=== PATIENT | male | born 1955 | race Caucasian/White ===

== ENCOUNTER 2020-06-13 10:24 | Outpatient (REF) | payer BC, SELFPAY ==
[2020-06-13 14:23] LABS: MANUAL DIFF FLAG NO
[2020-06-13 14:30] LABS: Basophils Percent Auto 0.2 % (0-2); Eosinophils Absolute Auto 0.3 X10*3/uL (0.0-0.4); Eosinophils Percent Auto 3.1 % (0-4); Hemoglobin 14.8 g/dl (14.0-18.0); Imm Gran Abs Auto 0.04 X10*3/uL (0.00-0.03); Imm Gran Pct Auto 0.5 % (0.0-0.4); Lymphocytes Absolute Auto 2.7 X10*3/uL (1.2-4.9); Lymphocytes Percent Auto 30.9 % (20-40); Mean Corpuscular HGB Conc 35.2 g/dl (31.0-36.0); Mean Corpuscular Hemoglobin 32.2 pg (27.0-33.0); Mean Corpuscular Volume 91.3 fL (80-98); Mean Platelet Volume 9.9 fL (9.4-12.4); Monocytes Absolute Auto 0.7 X10*3/uL (0.1-1.2); Monocytes Percent Auto 8.3 % (2-11); Platelet Count 266 X10*3/uL (160-400); Red Cell Distribution Width 12.1 % (11.0-16.0); White Blood Count 8.8 X10*3/uL (4.8-10.8)
[2020-06-13 15:10] LABS: Alanine Aminotransferase 34 U/L (0-40); Albumin Level 4.4 g/dL (3.5-5.0); Alkaline Phosphatase 58 U/L (39-117); Anion Gap 14 (12-20); Aspartate Amino Transferase 28 U/L (5-37); Blood Urea Nitrogen 10 mg/dL (9-16); Calcium 8.6 mg/dL (8.4-10.2); Carbon Dioxide 27 mmol/L (22-29); Chloride 102 mmol/L (96-108); Estimated Glomerular Filt Rate > 60; Glucose Random 88 mg/dL (60-115); Potassium 4.1 mmol/l (3.3-5.1); Sodium 139 mmol/L (135-145)
== END 2020-06-13 10:25 | disposition home or self-care (01) ==
LOC: HO.10HDL 10:24
PROVIDERS: Visit Provider Internal Medicine
DX: I10 Essential (primary) hypertension (principal); I25.10 Atherosclerotic heart disease of native coronary artery without angina pectoris; E03.9 Hypothyroidism, unspecified
CPT/HCPCS: 36415; 80053; 85025

== ENCOUNTER 2020-10-03 09:49 | Outpatient (REF) | payer BC, SELFPAY ==
[2020-10-03 13:58] LABS: MANUAL DIFF FLAG NO
[2020-10-03 14:04] LABS: Basophils Percent Auto 0.3 % (0-2); Eosinophils Absolute Auto 0.3 X10*3/uL (0.0-0.4); Eosinophils Percent Auto 3.3 % (0-4); Hematocrit 44.4 % (42-52); Hemoglobin 15.2 g/dl (14.0-18.0); Imm Gran Abs Auto 0.03 X10*3/uL (0.00-0.03); Imm Gran Pct Auto 0.3 % (0.0-0.4); Lymphocytes Absolute Auto 2.9 X10*3/uL (1.2-4.9); Lymphocytes Percent Auto 31.6 % (20-40); Mean Corpuscular HGB Conc 34.2 g/dl (31.0-36.0); Mean Corpuscular Hemoglobin 31.7 pg (27.0-33.0); Mean Corpuscular Volume 92.5 fL (80-98); Mean Platelet Volume 9.9 fL (9.4-12.4); Monocytes Absolute Auto 0.8 X10*3/uL (0.1-1.2); Monocytes Percent Auto 8.4 % (2-11); Neutrophils Absolute Auto 5.1 X10*3/uL (2.0-8.3); Neutrophils Percent Auto 56.1 % (45-73); Platelet Count 261 X10*3/uL (160-400); Red Cell Distribution Width 11.8 % (11.0-16.0); White Blood Count 9.1 X10*3/uL (4.8-10.8)
[2020-10-03 14:35] LABS: Alanine Aminotransferase 35 U/L (0-40); Albumin Level 4.6 g/dL (3.5-5.0); Alkaline Phosphatase 63 U/L (39-117); Anion Gap 13 (12-20); Aspartate Amino Transferase 26 U/L (5-37); Bilirubin Total 1.9 mg/dL (0.0-1.0); Blood Urea Nitrogen 11 mg/dL (9-16); Calcium 9.3 mg/dL (8.4-10.2); Carbon Dioxide 29 mmol/L (22-29); Chloride 102 mmol/L (96-108); Cholesterol 128 mg/dL; Estimated Glomerular Filt Rate > 60; Glucose Fasting 98 mg/dL (60-99); HDL Cholesterol 39 mg/dL; LDL Cholesterol Calculated 66 mg/dl; Potassium 4.2 mmol/L (3.3-5.1); Sodium 140 mmol/L (135-145); Total Protein 7.2 g/dL (6.5-8.0); Triglycerides 116 mg/dL
[2020-10-03 15:01] LABS: Free T4 (Free Thyroxine) 1.18 ng/dL (0.71-1.85); Thyroid Stimulating Hormone 4.14 uIU/mL (0.32-4.0)
== END 2020-10-03 09:50 | disposition home or self-care (01) ==
LOC: HO.10HDL 09:49
PROVIDERS: Absent Provider Internal Medicine Cardiovascular Disease; Visit Provider Internal Medicine
DX: I25.10 Atherosclerotic heart disease of native coronary artery without angina pectoris (principal); E78.00 Pure hypercholesterolemia, unspecified; E03.9 Hypothyroidism, unspecified; Z12.5 Encounter for screening for malignant neoplasm of prostate
CPT/HCPCS: 36415; 80053; 80061; 84153; 84439; 84443; 85025

== ENCOUNTER 2021-01-15 07:43 | Outpatient (REF) | payer BC, SELFPAY ==
[2021-01-15 11:15] LABS: MANUAL DIFF FLAG NO
[2021-01-15 11:27] LABS: Basophils Percent Auto 0.3 % (0-2); Eosinophils Absolute Auto 0.3 X10*3/uL (0.0-0.4); Hematocrit 41.6 % (42-52); Hemoglobin 14.1 g/dl (14.0-18.0); Imm Gran Abs Auto 0.04 X10*3/uL (0.00-0.03); Imm Gran Pct Auto 0.5 % (0.0-0.4); Lymphocytes Absolute Auto 2.5 X10*3/uL (1.2-4.9); Lymphocytes Percent Auto 31.3 % (20-40); Mean Corpuscular HGB Conc 33.9 g/dl (31.0-36.0); Mean Corpuscular Hemoglobin 31.6 pg (27.0-33.0); Mean Corpuscular Volume 93.3 fL (80-98); Mean Platelet Volume 10.2 fL (9.4-12.4); Monocytes Absolute Auto 0.8 X10*3/uL (0.1-1.2); Monocytes Percent Auto 10.1 % (2-11); Neutrophils Absolute Auto 4.3 X10*3/uL (2.0-8.3); Neutrophils Percent Auto 53.8 % (45-73); Platelet Count 271 X10*3/uL (160-400); Red Blood Count 4.46 X10*6/uL (4.60-5.80)
[2021-01-15 11:46] LABS: B Type Natriuretic Peptide 61 pg/mL (<100)
[2021-01-15 12:14] LABS: Free T4 (Free Thyroxine) 1.05 ng/dL (0.71-1.85); Thyroid Stimulating Hormone 6.59 uIU/mL (0.32-4.0)
[2021-01-15 12:18] LABS: Alanine Aminotransferase 26 U/L (0-40); Albumin Level 4.2 g/dL (3.5-5.0); Alkaline Phosphatase 61 U/L (39-117); Anion Gap 13 (12-20); Aspartate Amino Transferase 25 U/L (5-37); Bilirubin Total 1.3 mg/dL (0.0-1.0); Blood Urea Nitrogen 10 mg/dL (9-16); C Reactive Protein 0.07 mg/dL (< or = 0.50); Calcium 9.3 mg/dL (8.4-10.2); Carbon Dioxide 25 mmol/L (22-29); Chloride 105 mmol/L (96-108); Estimated Glomerular Filt Rate > 60; Glucose Random 104 mg/dL (60-115); Potassium 3.9 mmol/L (3.3-5.1); Sodium 139 mmol/L (135-145); Total Protein 6.5 g/dL (6.5-8.0)
== END 2021-01-15 07:44 | disposition home or self-care (01) ==
LOC: HO.HMGCLDS 07:43
PROVIDERS: PCP Internal Medicine; Visit Provider Internal Medicine
DX: R60.9 Edema, unspecified (principal); R21 Rash and other nonspecific skin eruption; I25.10 Atherosclerotic heart disease of native coronary artery without angina pectoris; E03.9 Hypothyroidism, unspecified
CPT/HCPCS: 36415; 80053; 83880; 84439; 84443; 85025; 86140

== ENCOUNTER → 2021-01-20 07:46 | Outpatient (REF) | payer BC, SELFPAY ==
--- NOTE | 2021-01-20 08:00 | CA_ITS ---
Transthoracic Echocardiogram Patient (Last, First, Middle): Bradley Schulte, Gender: Male Date of : 1955 Age: 65 Procedure Date: 01/20/2021 Procedure Type: Transthoracic Echocardiogram Location: OP Height: 175.26 cm Weight: 89.36 kg BSA: 2.05 m2 Heart Rate: bpm BP: 124 / 60 mmHg Education Faculty Member: NERY Referring MD: Eusebio Bruce MD Symptoms: R60.9 EDEMA I25.10 ASCD W/O ANGINA, R07.9 CHEST PAIN Study Quality: Fair ECG Rhythm: Sinus Conclusions: - The left ventricular systolic function is normal. The visually estimated ejection fraction is between 55-60%. - E/E prime ratio is >15, consistent with elevated filling pressures. - There is mildly decreased right ventricular systolic function. - There is mild mitral valve regurgitation. Findings Left Ventricle Normal left ventricular cavity size. There is mildly increased left ventricular wall thickness. The left ventricular systolic function is normal. The visually estimated ejection fraction is between 55-60%. There is no evidence of regional wall motion abnormalities. E/E prime ratio is >15, consistent with elevated filling pressures. Evidence suggests grade I (mild) diastolic dysfunction. Right Ventricle Normal right ventricular cavity size. There is mildly decreased right ventricular systolic function. Atria Both atria are normal in size. Aortic Valve There is a normal trileaflet aortic valve. There is no aortic valve stenosis. There is no aortic valve regurgitation. Mitral Valve The mitral valve appears normal. There is mild mitral valve regurgitation. There is no mitral valve stenosis. Pulmonic Valve The pulmonic valve was not well visualized. Tricuspid Valve Normal tricuspid valve structure. There is no tricuspid valve regurgitation. The pulmonary artery systolic pressure is normal. Great Vessels The aortic annulus, sinuses of valsalva, asc aorta, and aortic arch are normal in size. Venous The inferior vena cava is normal in size and collapses greater than 50% with inspiration. Pericardium/Pleural There is no evidence of pericardial effusion. Prior Study Comparison No prior study available for comparison. Measurements M-Mode Liner Measurements Normals - Women/Men AOV Cusps: 1.90 1.5-2.6 cm/m2 2D Linear Measurements IVSd: 1.15 0.6-0.9/0.6-1.0 cm LVIDd: 4.38 3.9-5.3/4.2-5.9 cm LVIDd Index: 2.14 2.4-3.2/2.2-3.1 cm/m2 LVIDs: 1.75 2.0-3.6 cm LVPWd: 1.23 0.7-1.1 cm Ao Root: 3.00 2.1-3.5 cm LA Diam: 4.40 2.7-3.8/3.0-4.0 cm LAIDs Index: 2.15 1.5-2.3 cm/m2 LV Mass: 233.88 67-162/88-224 g LV Mass Index: 114.09 43-95/49-115 g/m2 LVOT Diam: 2.20 3.0+(-)1.3 cm Mitral Valve MV Pk E: 1.07 MV PK A: 1.01 MV Decel Time: 179.00 E/A: 1.10 E'Lateral: 6.85 E'Medial: 5.22 E/E' Med: 20.50 E/E' Lat: 15.60 PHT: 52.00 MVA PHT: 4.23 Decel Will: 6.00 Aortic Valve AoV Pk Jean-Paul: 0.99 AoV Mn Jean-Paul: 0.75 AoV VTI: 0.24 AoV Pk Grad: 4.00 Aov Mn Grad: 2.00 MARIA G Cont.VTI: 2.76 LVOT LVOT Pk Jean-Paul: 0.76 LVOT Mn Jean-Paul: 0.55 LVOT VTI: 0.17 LVOT Pk Grad: 2.00 LVOT Mn Grad: 1.00 LVOT Diam: 2.20 LVOT Area: 3.80 Diastolic Function MV Pk E: 1.07 MV Pk A: 1.01 E/A: 1.10 E'Medial: 5.22 E/E' Med: 20.50 E' Laterial: 6.85 E/E' Lat: 15.60 Tricuspid Valve RA Press: 3.00 Great Vessels Aorta Ao Root-2D: 3.00 2.0-3.7 cm Ao Asc: 3.50 2.1-3.4 cm Ao Arch: 2.20 Pulmonary Valve PV Pk Jean-Paul: 0.90 Peak PV Grad: 3.00 Updated in Other Vendor System with Status of Final Chava Olson MD electronically signed on 01/20/2021 4:50:18 PM with status of Final
== END ==
LOC: HO.CARD 07:46
PROVIDERS: PCP Internal Medicine; Visit Provider Internal Medicine
DX: I25.10 Atherosclerotic heart disease of native coronary artery without angina pectoris (principal); R60.9 Edema, unspecified; R21 Rash and other nonspecific skin eruption
CPT/HCPCS: 93306

== ENCOUNTER 2021-04-23 10:11 | Outpatient (REF) | payer BC, SELFPAY ==
[2021-04-23 14:33] LABS: Anion Gap 11 (12-20); Blood Urea Nitrogen 10 mg/dL (9-16); Calcium 9.4 mg/dL (8.4-10.2); Carbon Dioxide 27 mmol/L (22-29); Chloride 104 mmol/L (96-108); Estimated Glomerular Filt Rate > 60; Glucose Fasting 90 mg/dL (60-99); Potassium 4.2 mmol/L (3.3-5.1); Sodium 138 mmol/L (135-145)
[2021-04-23 14:49] LABS: Free T4 (Free Thyroxine) 1.13 ng/dL (0.71-1.85)
[2021-04-23 19:06] LABS: Thyroid Stimulating Hormone 2.55 uIU/mL (0.32-4.0)
== END 2021-04-23 10:12 | disposition home or self-care (01) ==
LOC: HO.10HDL 10:11
PROVIDERS: Visit Provider Internal Medicine
DX: E03.9 Hypothyroidism, unspecified (principal); I25.10 Atherosclerotic heart disease of native coronary artery without angina pectoris; I10 Essential (primary) hypertension
CPT/HCPCS: 36415; 80048; 84439; 84443

== ENCOUNTER 2021-08-06 09:49 | Outpatient (REF) | payer BC, SELFPAY ==
--- NOTE | ~2021-08-06 | XR_ITS ---
EXAMINATION: XR HIP, LEFT CLINICAL INFORMATION: Left hip pain, question OA COMPARISON: None TECHNIQUE: Two views of the left hip. FINDINGS: No displaced fracture. The femoral head is well-seated within the acetabulum. There is mild cartilage space loss in the hip. Soft tissues unremarkable. XR/XR hip LT min 2V IMPRESSION: Mild degenerative change in the left hip.
[2021-08-06 13:25] LABS: MANUAL DIFF FLAG NO
[2021-08-06 13:38] LABS: Basophils Percent Auto 0.2 % (0-2); Eosinophils Absolute Auto 0.4 X10*3/uL (0.0-0.4); Eosinophils Percent Auto 4.2 % (0-4); Hematocrit 43.3 % (42.0-52.0); Hemoglobin 14.6 g/dl (14.0-18.0); Imm Gran Abs Auto 0.05 X10*3/uL (0.00-0.03); Imm Gran Pct Auto 0.5 % (0.0-0.4); Lymphocytes Absolute Auto 2.3 X10*3/uL (1.2-4.9); Lymphocytes Percent Auto 25.1 % (20-40); Mean Corpuscular HGB Conc 33.7 g/dl (31.0-36.0); Mean Corpuscular Hemoglobin 31.1 pg (27.0-33.0); Mean Corpuscular Volume 92.3 fL (80.0-98.0); Mean Platelet Volume 10.1 fL (9.4-12.4); Monocytes Absolute Auto 0.8 X10*3/uL (0.1-1.2); Monocytes Percent Auto 8.3 % (2-11); Neutrophils Absolute Auto 5.6 x10*3/uL (2.0-8.3); Neutrophils Percent Auto 61.7 % (45-73); Platelet Count 244 X10*3/uL (160-400); Red Blood Count 4.69 X10*6/uL (4.60-5.80); Red Cell Distribution Width 12.3 % (11.0-16.0); White Blood Count 9.1 X10*3/uL (4.8-10.8)
[2021-08-06 13:48] LABS: Alanine Aminotransferase 35 U/L (0-40); Albumin Level 4.3 g/dL (3.5-5.0); Alkaline Phosphatase 62 U/L (39-117); Anion Gap 10 (12-20); Aspartate Amino Transferase 24 U/L (5-37); Bilirubin Total 1.5 mg/dL (0.0-1.0); Blood Urea Nitrogen 9 mg/dL (9-16); Calcium 9.4 mg/dL (8.4-10.2); Carbon Dioxide 29 mmol/L (22-29); Chloride 103 mmol/L (96-108); Cholesterol 130 mg/dL; Estimated Glomerular Filt Rate > 60; Glucose Fasting 102 mg/dL (60-99); HDL Cholesterol 50 mg/dL; LDL Cholesterol Calculated 67 mg/dl; Potassium 4.2 mmol/L (3.3-5.1); Sodium 138 mmol/L (135-145); Total Protein 6.8 g/dL (6.5-8.0); Triglycerides 66 mg/dL
[2021-08-06 14:13] LABS: Free T4 (Free Thyroxine) 1.11 ng/dL (0.71-1.85); Prostate Specific Antigen 0.28 ng/mL (<0.05-4.0); Thyroid Stimulating Hormone 4.81 uIU/mL (0.32-4.0)
== END 2021-08-06 09:50 | disposition home or self-care (01) ==
LOC: HO.10HDL 09:49
PROVIDERS: Visit Provider Internal Medicine
DX: Z12.5 Encounter for screening for malignant neoplasm of prostate (principal); M25.552 Pain in left hip; E03.9 Hypothyroidism, unspecified; N40.0 Benign prostatic hyperplasia without lower urinary tract symptoms; I10 Essential (primary) hypertension; I25.10 Atherosclerotic heart disease of native coronary artery without angina pectoris; E78.5 Hyperlipidemia, unspecified
CPT/HCPCS: 36415; 73502; 80053; 80061; 84153; 84439; 84443; 85025

== ENCOUNTER 2021-10-06 14:08 | Outpatient (REF) | payer BC, SELFPAY ==
--- NOTE | ~2021-10-06 | XR_ITS ---
EXAMINATION: XR CHEST CLINICAL INFORMATION: Right chest pain COMPARISON: Chest radiograph from me 11/2016 TECHNIQUE: 2 views of the chest were obtained. FINDINGS: Biapical pleural parenchymal scarring. Mild appearing coarsened interstitial lung markings. No pneumothorax. Trachea is midline. Sternotomy wires and surgical clips. Prominent epicardial fat pad. Cardiomediastinal silhouette is stable. No large pleural effusion. Degenerative changes of the thoracolumbar spine. Soft tissues are unremarkable. XR/XR chest 2V IMPRESSION: No acute cardiopulmonary process.
[2021-10-06 16:06] LABS: Free T4 (Free Thyroxine) 0.99 ng/dL (0.71-1.85)
== END 2021-10-06 14:09 | disposition home or self-care (01) ==
LOC: HO.XRAY 14:08
PROVIDERS: PCP Internal Medicine; Visit Provider Internal Medicine
DX: R07.9 Chest pain, unspecified (principal); E03.9 Hypothyroidism, unspecified
CPT/HCPCS: 36415; 71046; 84439; 84443

== ENCOUNTER 2022-07-07 10:30 | Outpatient (REF) | payer BC, SELFPAY ==
[2022-07-07 11:32] LABS: Influenza A PCR NEGATIVE (Negative); Influenza B PCR NEGATIVE (Negative); Resp Syncy Virus RNA Qual PCR NEGATIVE (Negative); SARS COV2 PCR INHOUSE NEGATIVE (Negative)
== END 2022-07-07 10:31 | disposition home or self-care (01) ==
LOC: HO.LNP 10:30
PROVIDERS: Visit Provider Internal Medicine
DX: Z20.822 Contact with and (suspected) exposure to COVID-19 (principal); R05.9 Cough, unspecified
CPT/HCPCS: 0241U

== ENCOUNTER 2022-09-15 10:09 | Outpatient (REF) | payer BC, SELFPAY ==
--- NOTE | ~2022-09-15 | XR_ITS ---
EXAMINATION: XR CHEST CLINICAL INFORMATION: Cough COMPARISON: X-ray 10/06/2021 TECHNIQUE: 2 views of the chest were obtained. FINDINGS: Stable cardiomediastinal silhouette. Sternotomy wires. Prominent epicardial fat pad. Stable mild coarsened interstitial lung markings. No focal consolidation. No effusion or pulmonary edema. No pneumothorax. Thoracic spine degeneration. XR/XR chest 2V IMPRESSION: No acute cardiopulmonary process.
== END 2022-09-15 10:10 | disposition home or self-care (01) ==
LOC: HO.XRAY 10:09
PROVIDERS: PCP Internal Medicine; Visit Provider Internal Medicine
DX: R05.9 Cough, unspecified (principal)
CPT/HCPCS: 71046

== ENCOUNTER 2022-12-06 11:15 | Outpatient (REF) | payer BC, SELFPAY ==
--- NOTE | ~2022-12-06 | XR_ITS ---
EXAMINATION: XR CHEST CLINICAL INFORMATION: SOB, Covid plus. COMPARISON: Chest 09/15/2022 TECHNIQUE: 2 views of the chest were obtained. FINDINGS: No significant abnormality is noted involving the heart, lungs, mediastinum, bony thorax or soft tissues. There are median sternotomy sutures from previous CABG. XR/XR chest 2V IMPRESSION: Unremarkable chest examination.
== END 2022-12-06 11:16 | disposition home or self-care (01) ==
LOC: HO.XRAY 11:15
PROVIDERS: PCP Internal Medicine; Visit Provider Internal Medicine
DX: R06.02 Shortness of breath (principal); U07.1 COVID-19
CPT/HCPCS: 71046

== ENCOUNTER 2024-12-21 09:19 | Outpatient (REF) | payer BC, SELFPAY ==
[2024-12-21 10:07] LABS: MANUAL DIFF FLAG NO
[2024-12-21 10:27] LABS: Basophils Percent Auto 0.4 % (0-2); Eosinophils Absolute Auto 0.3 X10*3/uL (0.0-0.4); Eosinophils Percent Auto 4.1 % (0-4); Hematocrit 42.1 % (42.0-52.0); Imm Gran Abs Auto 0.05 X10*3/uL (0.00-0.03); Imm Gran Pct Auto 0.6 % (0.0-0.4); Lymphocytes Absolute Auto 2.4 X10*3/uL (1.2-4.9); Lymphocytes Percent Auto 30.6 % (20-40); Mean Corpuscular HGB Conc 35.6 g/dl (31.0-36.0); Mean Corpuscular Hemoglobin 31.6 pg (27.0-33.0); Mean Corpuscular Volume 88.8 fL (80.0-98.0); Mean Platelet Volume 9.7 fL (9.4-12.4); Monocytes Absolute Auto 0.7 X10*3/uL (0.1-1.2); Monocytes Percent Auto 8.2 % (2-11); Neutrophils Absolute Auto 4.4 x10*3/uL (2.0-8.3); Neutrophils Percent Auto 56.1 % (45-73); Platelet Count 200 X10*3/uL (160-400); Red Blood Count 4.74 X10*6/uL (4.60-5.80); Red Cell Distribution Width 11.8 % (11.0-16.0); White Blood Count 7.9 X10*3/uL (4.8-10.8)
[2024-12-21 10:47] LABS: Estimated Average Glucose 103 mg/dL; Hemoglobin A1C 131.9476 umol/L; Hemoglobin A1c % 5.2 % (<6.0); Total Hemoglobin (HGBA1C) 3961.4623 umol/L
[2024-12-21 11:01] LABS: Anion Gap 12 (12-20); Blood Urea Nitrogen 13 mg/dL (9-16); Carbon Dioxide 25 mmol/L (22-29); Chloride 105 mmol/L (96-108); Cholesterol 127 mg/dL (<200); Estimated Glomerular Filt Rate > 60; Glucose Random 115 mg/dL (60-115); HDL Cholesterol 47 mg/dL (>40); LDL Cholesterol Calculated 67 mg/dL (<100); Potassium 3.8 mmol/L (3.3-5.1); Sodium 138 mmol/L (135-145); Triglycerides 68 mg/dL (<150)
[2024-12-21 11:15] LABS: TSH reflex Free T4 5.96 uIU/mL (0.32-4.0)
[2024-12-21 11:54] LABS: Free T4 (Free Thyroxine) 1.02 ng/dL (0.71-1.85)
== END 2024-12-21 09:20 | disposition home or self-care (01) ==
LOC: HO.10HDL 09:19
PROVIDERS: Referring Provider Internal Medicine Cardiovascular Disease; Visit Provider Physician Assistant
DX: E03.9 Hypothyroidism, unspecified (principal); I10 Essential (primary) hypertension; N40.0 Benign prostatic hyperplasia without lower urinary tract symptoms; Z13.1 Encounter for screening for diabetes mellitus; Z13.220 Encounter for screening for lipoid disorders
CPT/HCPCS: 36415; 80048; 80061; 83036; 84439; 84443; 85025

== ENCOUNTER 2025-01-01 07:55 | Outpatient (AMB) | payer BC, SELFPAY ==
--- NOTE | 2025-01-01 08:03 | MHC.PC.OV ---
Vital Signs 01/01/25 08:06 Height 5 ft 9 in Weight 95.254 kg BMI 31.0 BP 140/80 H Respiration 16 Pulse 74 Pulse Source Pulse Oximeter Temp 97.8 F Temp Source Temporal Artery Scan Pulse Oximetry (%) 95 Oxygen Delivery Method Room Air Intake Visit Reasons: Routine It Desktop Support Technician Required: No Accompanied by: Self / Same As Patient Allergies No Known Allergies Allergy (Verified 01/01/25 08:05) HPI HPI Comments History of Present Illness Details 69-year-old male with history of hypothyroidism, hypertension, hyperlipidemia, BPH, coronary artery disease presents to the office today for management of chronic conditions and to establish care. He has no specific complaints today. PHQ-9 score is 4 but states this is mostly because of insomnia which he states has been going on since child spencer. He has no difficulty following asleep but will wake up around 01:00 for about 30 minutes before falling back asleep. He reports being well rested overall. He tells me he will be retiring in the coming months. Hypertension-initial blood pressure 140/80, repeat 130/78. Reports compliance with lisinopril 20 mg, hydrochlorothiazide 12.5 mg, amlodipine 10 mg daily. He does check his blood pressures at home with systolic blood pressure typically in the 120s and diastolic typically in the 60s. CAD/HLD- s/b CABG- s/p CABGx4 SHELL to LAD, radial to OM, chronic occulations of the vein to ramus and vein to R coronary, ALESHIA RCA (last 10 years ago per patient. NM December 2023- exercise nuclear stress test showing mild reversible perfusion defect in the apex and anterior wall, moderate intensity fixed perfusion defect in the apical to basal inferior wall, mild perfusion defect in the inferolateral wall which seemed artifactual. Following with [facility] cardiology q6m. Last echo without obvious wall motion abnormality. Reserved EF. On asa, atorvastatin 80mg, zetia 10mg. Recently taken off metoprolol d/t bredycardia. No recent anginal cp Carotrid stenosis- R internal carotid occlusion, severe stenosis L internal carotid (70-99%) thought to possibly be elevated due to contralateral occlusion. BPH- no LUTS. Overdue for PSA. On flomax 0.4mg Last colonscopy- 05/2018. 10 year follow up. Vishal General: No fevers, malaise, unintentional weight loss HEENT: No blurred vision, diplopia. No sore throat, nasal congestion, rhinorrhea, sinus pain, ear pain Cardiovascular: No chest pain, palpitations, or leg edema Respiratory: No shortness of breath, wheezing, cough Neuro: No headaches, weakness, paresthesias Skin: No rashes or lesions Constitutional - Awake and Alert, No apparent distress Eyes - PERRLA, EOMI Cardiovascular - S1S2, RRR, No edema. R carotid bruit noted Respiratory - Normal lung expansion, Normal respiratory effort, No respiratory distress, CTA bilaterally Extremities - no calf tenderness bilaterally, no swelling Skin - Warm/Dry Neurological - Alert & oriented x3 Psychological - Appropriate affect [facility] Medical History (Updated 01/01/25 @ 08:48 by NOEMY Gaines) Carotid stenosis CAD (coronary artery disease) BPH (benign prostatic hyperplasia) HTN (hypertension) Hypothyroidism Questionnaire PHQ-9 Over the last 2 weeks, how often have you been bothered by any of the following problems? 2. Feeling down, depressed, or hopeless: not at all 3. Trouble falling or staying asleep, or sleeping too much: not at all 4. Feeling tired or having little energy: nearly every day 5. Poor appetite or overeating: not at all 6. Feeling bad about yourself - or that you are a failure or have let yourself or your family down: several days 7. Trouble concentrating on things, such as reading the newspaper or watching television: not at all 8. Moving or speaking so slowly that other people could have noticed. Or the opposite - being so fidgety or restless that you have been moving around a lot more than usual: not at all 9. Thoughts that you would be better off or of hurting yourself in some way: not at all Source: Developed by Drs. Ezequiel Irene, Juliet Ruano, Suresh Valentino and colleagues, with an educational marco from [employer]. Thrive Questionnaire I am a: Patient What is your living situation today?: I have a steady place to live Within the past 12 months, did the food you bought not last and you didn't have the money to get more?: Never true Within the past 12 months, did you worry whether your food would run out before you got money to buy more?: Never true Do you have trouble paying for medicines?: No Do you have trouble getting transportation to medical appointments?: No Do you have trouble paying your heating and electricity bill?: No Do you have trouble taking care of your child, family member or friend?: No Do you have trouble with day-to-day activities such as bathing, preparing meals, shopping, managing finances, etc.?: No Are you currently unemployed and looking for a job?: No Are you interested in more education?: No Please select the resources that you would like help with: None THRIVE Score: 0 KENRICK-7 AMB Questionnaire KENRICK-7 Feeling nervous, anxious, or on edge: 0 = Not at all Not being able to stop or control worryin = Not at all Worrying too much about different things: 1 = Several days Trouble relaxin = Not at all Being so restless that it is hard to sit still: 0 = Not at all Becoming easily annoyed or irritable: 0 = Not at all Feeling afraid as if something awful might happen: 0 = Not at all Total KENRICK-7 score (0-4 normal; 5-9 mild; 10-14 moderate; 15-21 severe): 1 Source: Developed by Drs. Ezequiel Irene, Juliet Ruano, Suresh Valentino and colleagues, with an educational marco from [employer]. Physical exam (Primary Care) Vital Signs: Last Vital Signs Temp 97.8 F 01/01/25 08:06 Pulse 74 01/01/25 08:06 Resp 16 01/01/25 08:06 BP 140/80 H 01/01/25 08:06 Pulse Ox 95 01/01/25 08:06 Oxygen Delivery Method Room Air 01/01/25 08:06 BMI result Body Mass Index 31.0 Forms completed: Health Care Proxy and MOLST Time spent: 1-15 minutes, not on file Actual minutes spent: 5 Coding Level of Care Code New Pt Level 4 (68826) Complex EM visit Add On G2211 Diagnoses HTN (hypertension) I10 Hypothyroidism E03.9 BPH (benign prostatic hyperplasia) N40.0 Insomnia G47.00 CAD (coronary artery disease) I25.10 Carotid stenosis I65.29 Additional Codes Vital Signs *Quality* - Time spent: 1-15 minutes, not on file ([id number]) Assessment & Plan Assessment & Plan (1) HTN (hypertension): Code(s): I10 - Essential (primary) hypertension Category: Medical Plan: Controlled on recheck with blood pressure 130/78. Continue hydrochlorothiazide 12.5 mg, amlodipine 10 mg, lisinopril 20 mg daily. Reviewed BMP with normal renal function and electrolyte levels. Continue low-sodium diet. (2) Hypothyroidism: Code(s): E03.9 - Hypothyroidism, unspecified Category: Medical Plan: TSH slightly elevated at 5.98, free T4 normal. Patient has not been taking levothyroxine by itself. Advised to take this medication 1st thing in the morning without any other food or medications for at least 45-60 minutes. We will continue current dose levothyroxine 88 mcg daily given free T4 is normal. Recheck TSH with reflex free T4 in 6 months at follow-up visit (3) BPH (benign prostatic hyperplasia): Code(s): N40.0 - Benign prostatic hyperplasia without lower urinary tract symptoms Category: Medical Plan: Controlled. Continue Flomax 0.4 mg daily. PSA ordered. (4) Insomnia: Code(s): G47.00 - Insomnia, unspecified Category: Medical Plan: Currently not bothered by symptoms. Will monitor. (5) CAD (coronary artery disease): Comment: [facility]- s/b CABG- s/p CABGx4 SHELL to LAD, radial to OM, chronic occulations of the vein to ramus and vein to R coronary, ALESHIA RCA Code(s): I25.10 - Atherosclerotic heart disease of sun'aq coronary artery without angina pectoris Category: Medical Plan: Lipid panel at goal. Reviewed Cardiology notes from [facility]. Stable without any recent anginal chest pain. Continue baby aspirin, statin. No longer on beta-venkat. Strict blood pressure management and follow-up with cardiology as scheduled. (6) Carotid stenosis: Comment: [facility]- R internal carotid occlusion, severe stenosis L internal carotid (70-99%) thought to possibly be elevated due to contralateral occlusion Code(s): I65.29 - Occlusion and stenosis of unspecified carotid artery Category: Medical Plan: Stable, asymptomatic. Continue following closely with [facility] vascular surgery and Cardiology given severity of stenosis with occlusion on the right side. Continue baby aspirin and statin. Plan Follow-up in the office in 6 months, labs to be completed prior to visit. Follow-up with [facility] Cardiology and vascular surgery and continue medications as prescribed. MOLST completed in office and scanned. Reviewed HCP and form given to complete at home Orders: Orders PSA, Ultra Sensitive Today Z12.5 - Encounter for screening for malignant neoplasm of prostate Basic Metabolic Panel 5 Months E03.9 - Hypothyroidism, unspecified, I10 - Essential (primary) hypertension TSH reflex Free T4 5 Months E03.9 - Hypothyroidism, unspecified, I10 - Essential (primary) hypertension Medications: New amlodipine 10 mg PO DAILY 90 tabs 1RF ezetimibe 10 mg PO DAILY 90 tabs 1RF hydrochlorothiazide 12.5 mg PO DAILY 90 caps 1RF atorvastatin 80 mg PO DAILY 90 tabs 1RF Refilled levothyroxine 88 mcg PO DAILY 90 tabs 1RF lisinopril 20 mg PO DAILY 90 tabs 1RF tamsulosin 0.4 mg PO BEDTIME 90 caps 1RF
[2025-01-01 08:06] VITALS: BP 140/80; PULSE 74; RESP 16; TEMP 36.6; O2SAT 95; BMI 31.0
== END 2025-01-01 08:30 | disposition home or self-care (01) ==
LOC: HO.HMCHD 07:55
PROVIDERS: PCP Physician Assistant; Visit Provider Physician Assistant
DX: I10 Essential (primary) hypertension (principal); E03.9 Hypothyroidism, unspecified; N40.0 Benign prostatic hyperplasia without lower urinary tract symptoms; G47.00 Insomnia, unspecified; I25.10 Atherosclerotic heart disease of native coronary artery without angina pectoris; I65.29 Occlusion and stenosis of unspecified carotid artery; Z00.00 Encounter for general adult medical examination without abnormal findings

== ENCOUNTER 2025-01-01 08:43 | Outpatient (REF) | payer BC, SELFPAY ==
[2025-01-05 17:09] LABS: PSA, Ultra Sensitive 0.24 ng/mL
== END 2025-01-01 08:44 | disposition home or self-care (01) ==
LOC: HO.10HDL 08:43
PROVIDERS: Visit Provider Physician Assistant
DX: Z12.5 Encounter for screening for malignant neoplasm of prostate (principal)
CPT/HCPCS: 36415; 84153

== ENCOUNTER 2025-06-25 08:02 | Outpatient (AMB) | payer BC, SELFPAY ==
--- NOTE | 2025-06-25 08:02 | MHC.PC.OV ---
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 Medical Device Required: No Accompanied by: Self / Same As Patient Allergies No Known Allergies Allergy (Verified 06/25/25 08:03) Medication List - Last Reconciled 06/25/25 by Shin Green MD amlodipine 10 mg PO DAILY aspirin 81 mg PO DAILY atorvastatin 80 mg PO DAILY ezetimibe 10 mg PO DAILY hydrochlorothiazide 12.5 mg PO DAILY levothyroxine 88 mcg PO DAILY lisinopril 20 mg PO DAILY tamsulosin 0.4 mg PO BEDTIME Tobacco use date assessed: 06/25/25 Fall risk assessment: No Falls in past year Last assessed Fall Risk: 06/25/25 Dental Screening Dental Screen Date: 06/25/25 Did you have a dental visit in the last 12 months?: Yes Did you have a dental problem in the last 6 months where you did not have access to dental care?: No Was dental information given to patient?: Patient has dentist HPI HPI Comments History of Present Illness Details History of Present Illness The patient is a 70-year-old male presenting for a follow-up visit for medication management. He has a history of coronary artery disease, status-post coronary artery bypass grafting, for which he takes aspirin 81 mg, atorvastatin 80 mg, and ezetimibe. The patient reports he never had high cholesterol, but was placed on medication after his open-heart surgery. His history includes hypertension, managed with amlodipine 10 mg, hydrochlorothiazide 12.5 mg, and lisinopril 20 mg. His blood pressure in the clinic was 132/70 mmHg, and home readings are typically in the mid-130s over 65-75. The patient also has hypothyroidism and takes levothyroxine 88 mcg every morning, waiting 30-60 minutes before other medications. His last TSH level was 5.96, indicating his condition was undertreated at that time. He was prescribed tamsulosin for benign prostatic hyperplasia causing nocturia. He currently awakens once at night to urinate and did not notice a difference in symptoms when he was without the medication for about a week. Additionally, the patient reports developing cataracts and experiences some ankle puffiness toward the end of the day. He follows with cardiology annually and has an upcoming appointment next month. Medical History: - Hypertension - Hyperlipidemia - Coronary artery disease - Hypothyroidism - Benign prostatic hyperplasia - Cataracts Surgical History: - Coronary artery bypass grafting (CABG) Medications: - Amlodipine 10 mg for hypertension - Aspirin 81 mg for coronary artery disease - Atorvastatin 80 mg for coronary artery disease - Ezetimibe (Zetia) for coronary artery disease - Hydrochlorothiazide 12.5 mg for hypertension - Levothyroxine 88 mcg for hypothyroidism - Lisinopril 20 mg for hypertension - Tamsulosin for benign prostatic hyperplasia Diagnostic Results: - Prior labs: LDL 67, Total Cholesterol 127, TSH 5.96. Social History - Employment: The patient recently retired but still works part-time. [employer] Medical History (Updated 06/25/25 @ 08:29 by Shin Green MD) Hyperlipidemia Carotid stenosis CAD (coronary artery disease) BPH (benign prostatic hyperplasia) HTN (hypertension) Hypothyroidism Surgical History (Updated 06/24/25 @ 15:47 by Sabrina Cordova) History of colonoscopy (~05/10/18) Social History Housing: House Patient Tobacco Use Status: Former Tobacco user Tobacco use type: Cigarette Years Smoked: 20 years e-Cigarette/Vaping Use: Never Used service: No Current occupational status: employed and retired Current occupation: [employer] Questionnaire PHQ-9 Over the last 2 weeks, how often have you been bothered by any of the following problems? 1. Little interest or pleasure in doing things: not at all 2. Feeling down, depressed, or hopeless: not at all 3. Trouble falling or staying asleep, or sleeping too much: not at all 4. Feeling tired or having little energy: not at all 5. Poor appetite or overeating: not at all 6. Feeling bad about yourself - or that you are a failure or have let yourself or your family down: not at all 7. Trouble concentrating on things, such as reading the newspaper or watching television: not at all 8. Moving or speaking so slowly that other people could have noticed. Or the opposite - being so fidgety or restless that you have been moving around a lot more than usual: not at all 9. Thoughts that you would be better off or of hurting yourself in some way: not at all Total score: 0 Depression Screening Interpretation: Negative Depression Screening Done: Yes Source: Developed by Drs. Ezequiel Irene, Juliet Ruano, Suresh Valentino and colleagues, with an educational marco from [employer]. Thrive Questionnaire Date Thrive assessed: 06/25/25 I am a: Patient What is your living situation today?: I have a steady place to live Within the past 12 months, did the food you bought not last and you didn't have the money to get more?: Never true Within the past 12 months, did you worry whether your food would run out before you got money to buy more?: Never true Do you have trouble paying for medicines?: No Do you have trouble getting transportation to medical appointments?: No Do you have trouble paying your heating and electricity bill?: No Do you have trouble taking care of your child, family member or friend?: No Do you have trouble with day-to-day activities such as bathing, preparing meals, shopping, managing finances, etc.?: No Are you currently unemployed and looking for a job?: No Are you interested in more education?: No THRIVE Score: 0 AUDIT C Alcohol Use Questionnaire (AUDIT-C) 1. How often do you have a drink containing alcohol?: 4 or more times a week 2. How many drinks containing alcohol do you have on a typical day when you are drinking?: 1 or 2 3. How often do you have six or more drinks on one occasion?: Less than monthly Total Score: 5 Score Reviewed/Action Taken: Yes KENRICK-7 AMB Questionnaire KENRICK-7 Date KENRICK - 7 assessed: 06/25/25 Feeling nervous, anxious, or on edge: 0 = Not at all Not being able to stop or control worryin = Not at all Worrying too much about different things: 0 = Not at all Trouble relaxin = Not at all Being so restless that it is hard to sit still: 0 = Not at all Becoming easily annoyed or irritable: 0 = Not at all Feeling afraid as if something awful might happen: 0 = Not at all Total KENRICK-7 score (0-4 normal; 5-9 mild; 10-14 moderate; 15-21 severe): 0 Source: Developed by Drs. Ezequiel Irene, Juliet Ruano, Suresh Valentino and colleagues, with an educational marco from [employer]. Review of Systems Narrative Review of Systems - Cardiovascular: Denies chest pain. - Respiratory: Denies shortness of breath. - Genitourinary: Reports nocturia, waking up once per night. - Eyes: Reports developing cataracts. - Extremities: Reports puffy ankles at the end of the day. All systems reviewed & are unremarkable except as reviewed in HPI and above Physical exam (Primary Care) Vital Signs: Last Vital Signs Temp 97.5 F 06/25/25 08:06 Pulse 84 06/25/25 08:06 Resp 18 06/25/25 08:06 BP 132/70 06/25/25 08:06 Pulse Ox 94 06/25/25 08:06 Oxygen Delivery Method Room Air 06/25/25 08:06 BMI result Body Mass Index 29.1 Tobacco/Smoking Status: Tobacco use Status Tobacco use date assessed 06/25/25 06/25/25 08:03 Patient Tobacco Use Status Former Tobacco user 06/25/25 08:11 Tobacco use type Cigarette 06/25/25 08:11 e-Cigarette/Vaping Use Never Used 06/25/25 08:11 PHQ-9: PHQ-9 Score PHQ-9: Total score 0 06/25/25 08:27 Depression Screening Interpretation: Negative Thrive Assessment: Date of Thrive Assessment Date Thrive assessed 06/25/25 06/25/25 08:27 Narrative Physical Exam General: +Alert and oriented, Well nourished, No acute distress. Eye: Pupils are equal, round and reactive to light, Intact accommodation, Extraocular movements are intact, Normal conjunctiva, Vision is noted to have cataracts. HENT: Normocephalic, Atraumatic, Tympanic membranes are clear, Normal hearing, Oral mucosa is moist, No pharyngeal erythema, Ear canals patent. Respiratory: Lungs CTA bilaterally, No wheeze, Respirations are non-labored. Cardiovascular: Regular rate, Regular rhythm, S1 auscultated, S2 auscultated, No murmur, Good pulses equal in all extremities, Normal peripheral perfusion, Mild ankle edema noted. Gastrointestinal: Soft, Non-tender, Non-distended, Normal bowel sounds, No organomegaly. Musculoskeletal: Normal range of motion, Normal strength, No tenderness, No swelling, No deformity, Normal gait. Integumentary: Warm, Dry, [place], Intact. Neurologic: Alert, Oriented, Normal sensory, Normal motor function, No focal defects, Cranial Nerves II-XII are grossly intact, Normal deep tendon reflexes. Psychiatric: Cooperative, Appropriate mood & affect, Normal judgment. Coding Level of Care Code Est Pt Level 4 (60006) Complex EM visit Add On G2211 Diagnoses Primary hypertension I10 Hypertension type: primary hypertension Other specified hypothyroidism E03.8 Hypothyroidism type: other Benign prostatic hyperplasia without lower urinary tract symptoms N40.0 Lower urinary tract symptom presence: symptoms absent Other hyperlipidemia E78.49 Hyperlipidemia type: other hyperlipidemia Stenosis of right carotid artery I65.21 Laterality: right Coronary artery disease involving [place] coronary artery of [place] heart without angina pectoris I25.10 Associated angina: without angina Coronary Disease-Associated Artery/Lesion type: [place] artery [place] vs. transplanted heart: [place] heart Assessment & Plan Assessment & Plan (1) HTN (hypertension): Comment: - Blood pressure is well-controlled at 132/70 mmHg on current medications. - The plan is to continue current medications and encourage more frequent home blood pressure monitoring. Code(s): I10 - Essential (primary) hypertension Category: Medical Qualifiers: Hypertension type: primary hypertension Qualified Code(s): I10 - Essential (primary) hypertension (2) Hypothyroidism: Comment: - Likely undertreated, as his last TSH was 5.96. - The plan is to order thyroid function tests today. - The dose of levothyroxine may be adjusted based on the results. Code(s): E03.9 - Hypothyroidism, unspecified Category: Medical Qualifiers: Hypothyroidism type: other Qualified Code(s): E03.8 - Other specified hypothyroidism (3) BPH (benign prostatic hyperplasia): Comment: - Symptoms are minimal, with nocturia occurring once nightly. - The patient did not notice a significant change when he was off tamsulosin. - The plan is for the patient to trial being off tamsulosin for 1-2 weeks to assess if it is providing any benefit. Code(s): N40.0 - Benign prostatic hyperplasia without lower urinary tract symptoms Category: Medical Qualifiers: Lower urinary tract symptom presence: symptoms absent Qualified Code(s): N40.0 - Benign prostatic hyperplasia without lower urinary tract symptoms (4) Hyperlipidemia: Comment: - Stable on Zetia & Atorvastatin - Most recent LDL at 67 Code(s): E78.5 - Hyperlipidemia, unspecified Category: Medical Qualifiers: Hyperlipidemia type: other hyperlipidemia Qualified Code(s): E78.49 - Other hyperlipidemia (5) Carotid stenosis: Comment: [facility]- internal carotid occlusion, severe stenosis L internal carotid (70-99%) thought to possibly be elevated due to contralateral occlusion Code(s): I65.29 - Occlusion and stenosis of unspecified carotid artery Category: Medical Qualifiers: Laterality: right Qualified Code(s): I65.21 - Occlusion and stenosis of right carotid artery (6) CAD (coronary artery disease): Comment: - [facility]- s/b CABG- s/p CABGx4 SHELL to LAD, radial to OM, chronic occulations of the vein to ramus and vein to R coronary, ALESHIA RCA - Stable post-CABG with excellent cholesterol levels (LDL 67) on atorvastatin and ezetimibe. - The plan is to continue current medications including aspirin. - A referral will be sent to [facility] for his annual follow-up with Dr. Marinelli. Code(s): I25.10 - Atherosclerotic heart disease of [place] coronary artery without angina pectoris Category: Medical Qualifiers: Associated angina: without angina Coronary Disease-Associated Artery/Lesion type: [place] artery [place] vs. transplanted heart: [place] heart Qualified Code(s): I25.10 - Atherosclerotic heart disease of [place] coronary artery without angina pectoris Plan: Health Maintenance: - Encouraged more frequent home blood pressure monitoring for responsible health tracking. - Ordered thyroid function labs to ensure proper thyroid management. - A referral will be provided for his annual cardiology follow-up. - Scheduled for a follow-up visit in 6 months, which will serve as his annual exam. Patient was informed and verbally consented to the use of an ambient scribe for clinic note documentation during this visit. Plan I reviewed the patient's medications and noted his blood pressure and cholesterol are well-controlled. I explained that his previous TSH level of 5.96 suggested his hypothyroidism was undertreated, so I have ordered new labs for him to complete today. I will message him with the results and any necessary changes to his levothyroxine dose. We discussed the tamsulosin for his prostate, and since his symptoms are minimal and he noted no difference when off the medication, I recommended a trial of stopping it for one to two weeks to see if it's truly needed. Regarding his ankle swelling, I advised him to elevate his legs and consider tighter compression stockings. I will send a referral to [facility] for his upcoming appointment. I am happy with his current status and have advised him to follow up in six months for his annual exam. Orders: Orders TSH reflex Free T4 Today E03.8 - Other specified hypothyroidism Referrals Cardiology Referral I25.10 - Atherosclerotic heart disease of [place] coronary artery without angina pectoris Patient Instructions: - Check your blood pressure at home more regularly. - You can try stopping your tamsulosin prostate medication for a week or two. If you do not feel a difference, you do not need to continue taking it. - Please go to the lab today to get your thyroid blood work done. - For the swelling in your ankles, try to elevate your legs when you can. You may also want to get some tighter compression socks to wear during the day. - We will send the referral to your job counselor, Dr. Marinelli. - Please schedule a follow-up appointment for six months from now.
[2025-06-25 08:06] VITALS: BP 132/70; PULSE 84; RESP 18; TEMP 36.4; O2SAT 94; BMI 29.1
== END 2025-06-25 08:27 | disposition home or self-care (01) ==
LOC: HO.HMCHD 08:02
PROVIDERS: PCP Physician Assistant; Visit Provider Student in an Organized Health Care Education/Training Program
DX: I10 Essential (primary) hypertension (principal); E03.8 Other specified hypothyroidism; N40.0 Benign prostatic hyperplasia without lower urinary tract symptoms; E78.49 Other hyperlipidemia; I65.21 Occlusion and stenosis of right carotid artery; I25.10 Atherosclerotic heart disease of native coronary artery without angina pectoris

== ENCOUNTER 2025-06-25 08:28 | Outpatient (REF) | payer BC, SELFPAY | END 2025-06-25 08:29 | disposition home or self-care (01) | LOC: HO.10HDL 08:28 | PROVIDERS: Visit Provider Student in an Organized Health Care Education/Training Program | DX: E03.8 Other specified hypothyroidism (principal) | CPT/HCPCS: 36415; 84443 ==